=== PATIENT | female | born 1950 | race Caucasian/White ===

== ENCOUNTER 2019-11-23 07:09 | Inpatient (IN) ==
[2019-11-23] MEDS ORDERED: ONDANSETRON 4 MG/2 ML VIAL ONE (08:59)
[2019-11-23] MEDS ORDERED: ONDANSETRON 4 MG/2 ML VIAL IV STA (08:59)
[2019-11-23] MEDS ORDERED: cefTRIAXone 1,000 MG in SODIUM CHLORIDE 0.9% 100 ML IV STA (09:17)
[2019-11-23 09:36] LABS: Basophils % 0.2 % (0.0-0.8); Eosinophils # 0.1 10*3/uL (0.0-0.87); Eosinophils % 1.7 % (0.00-10.9); Hematocrit 46.4 VOL% (35.7-47.0); Hemoglobin 15.2 GM/DL (12.0-16.0); Immature Granulocytes % 0.7 %; Immature Granulocytes Absolute 0.06 #; Lymphocytes # 0.9 10*3/uL (1.4-4.0); Lymphocytes % 10.9 % (21.3-54.2); Mean Corpuscular HGB Conc 32.8 GM/DL (32-36); Mean Corpuscular Volume 92.2 FL (87-102); Mean Platelet Volume 8.6 FL (9.6-12.0); Monocytes % 5.2 % (1.7-12.7); Neutrophils % 81.3 % (38.7-73.9); Platelet Count 123 T/CUMM (130-400); Red Blood Count 5.03 MC/CUMM (3.8-5.5); Red Cell Distribution Width 12.9 % (9.3-17.3); White Blood Count 8.5 T/CUMM (4-12)
[2019-11-23 10:10] LABS: Apearance,Urine CLEAR (Clear); Bilirubin,Urine Negative (Negative); Blood, Urine Small mg/dL (Negative); Glucose,Urine (UA) Negative (Negative); Hyaline Casts,Urine 3 /LPF (0-3); Ketones,Urine Negative (Negative); Mucus,Urine Occasional /LPF (Occasional); Nitrite,Urine Negative (Negative); Protein,Urine Negative; RBC,Urine 1 /HPF (0-4); Squamous Epithelial Cell,Urine Occasional /HPF (0-10); Urine Color Yellow (Yellow); Urine Specific Gravity 1.011 (1.001-1.035); Urine Urobilinogen < 2.0 EU/DL (0.2-1.0)
[2019-11-23 10:19] LABS: Calcium 9.5 MG/DL (8.5-10.1); Osmolality,Calculated 277.5 MOS/KG (273-304)
[2019-11-23] MEDS ORDERED: ACETAMINOPHEN 325 MG TABLET PO PRN (11:31)
[2019-11-23] MEDS ORDERED: hydrALAZINE 20 MG/1 ML VIAL IV PRN (11:31)
[2019-11-23] MEDS ORDERED: LACTULOSE 20 GM/30 ML UDCUP PO PRN (11:31)
[2019-11-23 12:02] LABS: Risk Ratio 2.82; Thyroid Stimulating Hormone 0.611 uIU/ml (0.358-3.74); VLDL CHOLESTEROL 27.8 MG/DL
[2019-11-23] MEDS: ENOXAPARIN 40 MG/0.4 ML SYRINGE SUBCUT SCH (21:02)
[2019-11-24 06:54] LABS: Basophils % 0.3 % (0.0-0.8); Eosinophils # 0.2 10*3/uL (0.0-0.87); Eosinophils % 2.7 % (0.00-10.9); Hematocrit 39.8 VOL% (35.7-47.0); Hemoglobin 13.4 GM/DL (12.0-16.0); Immature Granulocytes % 0.4 %; Immature Granulocytes Absolute 0.03 #; Lymphocytes # 1.4 10*3/uL (1.4-4.0); Lymphocytes % 20.5 % (21.3-54.2); Mean Corpuscular HGB Conc 33.7 GM/DL (32-36); Mean Corpuscular Volume 90.2 FL (87-102); Mean Platelet Volume 8.6 FL (9.6-12.0); Monocytes % 9.1 % (1.7-12.7); Platelet Count 128 T/CUMM (130-400); Red Blood Count 4.41 MC/CUMM (3.8-5.5); Red Cell Distribution Width 12.5 % (9.3-17.3)
[2019-11-24 07:13] LABS: Albumin 3.2 G/DL (3.4-5.0); Bilirubin,Total 0.5 MG/DL (0.2-1.0); Calcium 9.1 MG/DL (8.5-10.1); Osmolality,Calculated 275.7 MOS/KG (273-304); Total Protein 6.8 G/DL (6.4-8.3)
[2019-11-24 07:36] LABS: Folate > 24.0 NG/ML (5.4-24.0); Vitamin B12 471 PG/ML (211-911)
[2019-11-24] MEDS: PANTOPRAZOLE 40 MG TABLET PO SCH (09:00)
[2019-11-24] MEDS ORDERED: KETOROLAC 15 MG/1 ML VIAL IV ONE (12:00)
[2019-11-24] MEDS: ENOXAPARIN 40 MG/0.4 ML SYRINGE SUBCUT SCH (20:54)
[2019-11-24] MEDS: MAGNESIUM CHLORIDE 64 MG TABLET PO SCH (20:54)
[2019-11-24] MEDS ORDERED: ROSUVASTATIN 20 MG TABLET PO SCH (21:00)
[2019-11-24] MEDS: ACETAMINOPHEN 500 MG TABLET PO PRN (21:41)
[2019-11-24] MEDS: ONDANSETRON 4 MG/2 ML VIAL IV PRN (21:45)
[2019-11-25] MEDS ORDERED: LEVOTHYROXINE 88 MCG TABLET PO SCH (06:00)
[2019-11-25] MEDS ORDERED: FENOFIBRATE 145 MG TABLET PO SCH (09:00)
[2019-11-25] MEDS ORDERED: ESTRADIOL 1 MG TABLET PO SCH (09:00)
[2019-11-25] MEDS ORDERED: CALCIUM (CITRATE)/VITAMIN D 200 MG-125 UNIT TABLET PO SCH (09:00)
[2019-11-25] MEDS ORDERED: SERTRALINE 100 MG TABLET PO SCH (09:00)
[2019-11-25] MEDS ORDERED: ASPIRIN EC 81 MG TABLET PO SCH (09:00)
[2019-11-25] MEDS: PANTOPRAZOLE 40 MG TABLET PO SCH (09:25)
[2019-11-25] MEDS: MAGNESIUM CHLORIDE 64 MG TABLET PO SCH (09:25)
[2019-11-25] MEDS: ACETAMINOPHEN 500 MG TABLET PO PRN (09:35)
[2019-11-25] MEDS: ONDANSETRON 4 MG/2 ML VIAL IV PRN (09:36)
[2019-11-25 13:30] VITALS: BP 138/62
[2019-12-01] MEDS ORDERED: ERGOCALCIFEROL 50,000 UNIT CAPSULE PO SCH (09:00)
== END 2019-11-25 15:45 | disposition home or self-care (01) | DRG 947 ==
LOC: N.ED 07:09 → SUPCPDRO 11:31 → SUATTDRO 11:31 → N.EDINP 11:31 → N.2E 13:33
PROVIDERS: ADMIT Internal Medicine; ATTEND Internal Medicine